=== PATIENT | female | born 1935 | race Caucasian/White ===

== ENCOUNTER 2016-04-22 11:24 | Inpatient (IN) | payer OTHER ==
--- NOTE | ~2016-04-22 | DS ---
Discharge Summary [facility] [address] [facility] [place]. [address] NAME: LISA HOPKINS : 34 STATUS : DIS IN PAT#: [id number] AGE: 80 ADM/REG DATE : 04/22/16 MR#: [id number] REPORT SERV DATE: 04/26/16 DICTATED BY: DATE: REPORT STATUS : Draft TRANSCRIBED BY: MODL DATE: 04/25/16 ADMISSION DATE: 04/22/2016 DISCHARGE DATE: 04/25/2016 DISCHARGE DIAGNOSES: 1. Hyponatremia. 2. Hypertension. 3. Hypothyroid. 4. History of atrial fibrillation. 5. Cough. 6. Nausea and vomiting. 7. Cachexia. CONSULTATIONS: Nephrology, Dr. Gutiérrez. PROCEDURES AND IMAGIN04/22/2016, portable chest x-ray showed no acute cardiopulmonary process. 04/23/2016, CT of the chest with contrast showed no pulmonary mass or adrenal mass or acute cardiopulmonary disease or intraabdominal process. HOSPITAL COURSE: This is an 80-year-old white female who is ill appearing, has had poor appetite and feeling unwell for several weeks. states she has a chronic history of hyponatremia and comes to the hospital to get it corrected and goes home and repeats the same process with nausea, vomiting, and weakness. During her stay, the patient has continued to eat poorly and has had episodic nausea, but no vomiting. The patient does have a loose cough with expectoration of beige mucus. The patient only gets out of bed to go to the bathroom. The patient unwilling versus unable to give a history or time periods related to health care and has answers most questions. When asked, the patient is alert and oriented x3. The patient's initial sodium was 120 and has been 129 for the last three days. The patient has also been having issues with low potassium during her stay. The patient has a history of atrial fibrillation but has been in sinus rhythm with PVCs during her stay. It has been discussed with family to have the patient drink protein drinks 3 times a day after attempting to eat until appetite returns. PHYSICAL EXAMINATION: VITAL SIGNS: Blood pressure 146/65, O2 saturation is 93% on room air, respirations are 19, temperature is 98.0, heart rate is 87. HEENT: Head is atraumatic, normocephalic. Pupils are equal, round, reactive to light. Sclerae are clear and nonicteric. NECK: Supple with no palpable lymphadenopathy or thyromegaly. Neck veins are flat. CARDIAC: S1 and S2 with no obvious murmurs, rubs, or gallops. LUNGS: The patient has crackles in the right greater than the left base. The patient has loose cough with deep inspiration, has normal respiratory effort. GI: Abdomen is soft and nontender with active bowel sounds in all four quadrants. Normal bowel habitus. No palpable organomegaly. EXTREMITIES: Mild nonpitting bilateral edema. Dorsalis pedis and posterior tibial pulses are palpable bilaterally. No clubbing or cyanosis noted. Discharge Summary [facility] [address] [place]. [address] NAME: LISA HOPKINS : 34 STATUS : DIS IN PAT#: [id number] AGE: 80 ADM/REG DATE : 04/22/16 MR#: [id number] REPORT SERV DATE: 04/26/16 DICTATED BY: DATE: REPORT STATUS : Draft TRANSCRIBED BY: MODL DATE: 04/25/16 MUSCULOSKELETAL: The patient moves all extremities x4. SKIN: Skin is intact, warm, and dry with normal color and turgor. NEUROPSYCH: The patient is alert and oriented x3. Affect is flat. She is eating poorly. DISCHARGE MEDICATIONS: Estrogen progesterone troches per patient protocol, Flonase two sprays in each nostril twice daily, Claritin 10 mg daily, valsartan 160 mg twice daily, Tessalon Perles 200 mg three times a day as needed for cough, Catapres 0.1 mg three times a day if needed for systolic blood pressure greater than or equal to 170, Nature Thyroid 97.5 mg p.o. daily, aspirin 81 mg daily. The patient to use Ensure or Boost 3 times a day until regains appetite. ALLERGIES: THE PATIENT IS ALLERGIC TO SULFA, CODEINE, AND PHENERGAN. DISCHARGE INSTRUCTIONS: The patient is to follow up with PCP with name provided by Case Management in 7 to [address] Gutiérrez in one week. Should the patient have any more signs and symptoms, she should call her PCP, Dr. Gutiérrez, or present to the emergency department. Approximately 40 minutes has been spent coordinating discharge care of this patient including [id number] encounter and summarization of the discharge. The patient had any type of back pain due to patient's numbness in her feet and both deny the patient has had any injury or any history of pain. SLC/MODL Claudia Cartwright NP / [id number] CC: Ant Van MD
--- NOTE | ~2016-04-22 | HP ---
History And Physical [place] [id number] [facility] [place]. [address] NAME: LISA HOPKINS : 34 STATUS : ADM IN [facility]#: [id number] AGE: 80 ADM/REG DATE : 04/22/16 MR#: [id number] REPORT SERV DATE: 04/23/16 DICTATED BY: TIFFANY JACKSON DATE: 04/22/16 REPORT STATUS : Draft TRANSCRIBED BY: MODL DATE: 04/22/16 DATE OF ADMISSION: 04/22/2016 CHIEF COMPLAINT: Nausea, vomiting, and weakness. HISTORY OF PRESENT ILLNESS: The patient states that for the past couple of weeks she could not really quantitate that she has been feeling unwell and progressively worsening. who was at bedside also provided history stating that she has a history of chronic hyponatremia, she would present to the hospital, she will get the sodium corrected, she will feel well, go home, and over the course, she will feel well, progressively worsening with symptoms of nausea, vomiting, and weakness, and would have to re-present to the hospital for her sodium to be corrected. states that this has been the pattern for a long time. States that over the past couple of weeks has not been feeling well with progressive decrease in p.o. intake. States that for the past week the patient has had very minimal p.o. intake. Reports that she has been having nausea and vomiting, but given the fact that she has not been eating, her vomitus has mostly been liquid and mucus. states that given that she was progressively worsening, which is usually the indication that her sodium may be low. He decided to bring her to the hospital today. Upon presentation to the emergency room, preliminary workup included a sodium level, which was noted to be 120. Additional history obtained by the nursing staff states that upon initial presentation, patient was actively confused, could not tell where she was or what day it is. The patient was therefore admitted on the Hospitalist Service for further management. Upon my evaluation, the patient and corroborated the above story. The patient reports lightheadedness and dizziness. She reports nausea and vomiting. States that no blood noted in her vomitus. Also reports a generalized feeling of wellness. However, she denied any chest pain, any palpitations. She denied any fevers, any chills. No diarrhea. No constipation. She denied any recent falls or any syncopal episodes. REVIEW OF SYSTEMS: As noted in the HPI. All other systems were negative. PAST MEDICAL HISTORY: Hyponatremia, recurrence since 2009; hypothyroidism; diverticulitis; bladder outlet obstruction; colon polyps; peripheral neuropathy; history of atrial fibrillation, status post cardioversion and ablation. PAST SURGICAL HISTORY: 1. Hysterectomy. 2. Appendectomy. 3. Bladder tract. 4. Cardiac ablation. 5. Cholecystectomy. 6. Varicose vein surgery. 7. Hemorrhoidectomy. 8. Right jaw surgery. SOCIAL HISTORY: The patient is currently . Lives at home with her . Denies History And Physical [address] [place]. [address] NAME: LISA HOPKINS : 34 STATUS : ADM IN [facility]#: [id number] AGE: 80 ADM/REG DATE : 04/22/16 MR#: [id number] REPORT SERV DATE: 04/23/16 DICTATED BY: TIFFANY JACKSON DATE: 04/22/16 REPORT STATUS : Draft TRANSCRIBED BY: IVETH DATE: 04/22/16 any alcohol, tobacco, or illicit drug use. FAMILY HISTORY: Positive for coronary artery disease and congestive heart failure. ALLERGIES: THE PATIENT IS ALLERGIC TO SULFA, CODEINE, AND PHENERGAN. HOME MEDICATIONS: Aspirin 81 mg p.o. daily p.r.n., clonidine 0.1 mg p.o. three times daily p.r.n., and Nature-Throid. Estradiol and progesterone. Valsartan 160 mg p.o. twice a day. PHYSICAL EXAMINATION: VITAL SIGNS: Blood pressure 181/86, pulse 84, respirations 16, and O2 saturation 97%. GENERAL: The patient lying in bed, in no acute distress, appears stated age. HEENT: Normocephalic, atraumatic. Extraocular motor is intact. Moist oral mucosa. NECK: Trachea midline and symmetric. No JVD noted. CHEST: Nontender to palpation. CARDIOVASCULAR: Regular rate and rhythm. S1, S2. I do not appreciate any murmurs, rubs, or gallops. LUNGS: Clear to auscultation bilaterally. ABDOMEN: Obese, distended, positive bowel sounds. EXTREMITIES: No cyanosis, no clubbing, no edema. NEURO: Alert and oriented x3. No focal deficits appreciated. LABS: Hemoglobin 13.2, hematocrit 37, platelets 239. Sodium 120, potassium 3.6, chloride 83, bicarb 24, BUN 10, and creatinine 0.49, and glucose 118. IMAGING: None available. ASSESSMENT AND PLAN: 1. Hyponatremia, chronic, this is symptomatic, etiology unclear at this time. Plan, we will obtain a serum osmolality sample from lab. We will start the patient on 100 mL 3% saline at 35 mL an hour, and repeat BNP at the completion of fluid. Target sodium for the first 24 hours will be 127. 2. Hypertension, uncontrolled on present medications. We will continue home medications and monitor, I will titrate as needed. 3. Hypothyroidism. The patient has a history but on no medication. We will check TSH, T4, and T3. 4. History of atrial fibrillation, status post ablation and cardioversion. The patient currently in sinus rhythm during my examination, not on anticoagulation, we will monitor. DVT prophylaxis will be heparin. The patient will remain full code at this time. History And Physical [address] [address] NAME: LISA HOPKINS : 34 STATUS : ADM IN [facility]#: [id number] AGE: 80 ADM/REG DATE : 04/22/16 MR#: [id number] REPORT SERV DATE: 04/23/16 DICTATED BY: TIFFANY JACKSON DATE: 04/22/16 REPORT STATUS : Draft TRANSCRIBED BY: IVETH DATE: 04/22/16 JAYDEN/IVETH Tiffany Jackson MD / [id number] CC: Nick Dent M.D.
--- NOTE | ~2016-04-22 | CN ---
Consultation Report [facility] [address] [place]. [address] NAME: LISA HOPKINS : 34 STATUS : ADM IN [facility]#: [id number] AGE: 80 ADM/REG DATE : 04/22/16 MR#: [id number] REPORT SERV DATE: 04/23/16 DICTATED BY: DATE: REPORT STATUS : Draft TRANSCRIBED BY: MODL DATE: 04/23/16 CONSULT DATE OF CONSULTATION: REASON FOR CONSULTATION: Hyponatremia. HISTORY OF PRESENT ILLNESS: Ms. Hopkins is an 80-year-old white female, well known to our practice with multiple admissions for hyponatremia, followed by Dr. Kang. She has not been seen in the office since 2014. At that time, her sodium was 135. She presents back to the hospital with nausea, vomiting, and weakness. She has had some confusion. The states that it started a couple of weeks ago. On review of records, it seems as though this same issue happens every time that she develops nausea. She is also having what I think is some postnasal drip. According to the patient and her , she drinks about 2 to 3 bottles of water per day and she is not eating well because of the nausea. No vomiting. No diarrhea. No fevers. No chills. She is weak and in general does not feel well. Sodium since arrival has gone from 120 to 124 with 3% saline x200 mL. PAST MEDICAL HISTORY: Hypothyroidism, hyponatremia, diverticulitis, bladder outlet obstruction, peripheral neuropathy, atrial fibrillation, she is status post cardioversion, she has had hysterectomy, appendectomy, cholecystectomy, hemorrhoid surgery, jaw surgery, and varicose vein surgery. SOCIAL HISTORY: She is , lives with her . No tobacco, alcohol, or illicit drug use. ALLERGIES: SULFA. MEDICATIONS: At the time of consultation, Diovan, thyroid, and heparin. FAMILY MEDICAL HISTORY: Congestive heart failure and coronary artery disease. REVIEW OF SYSTEMS: A 12-point review of systems obtained and negative with the exception of that in the HPI. PHYSICAL EXAMINATION: VITAL SIGNS: Temperature 96.7, blood pressure 178/81, pulse 77, respiratory rate 18, and O2 saturation is 92%. GENERAL: This is a pleasant, cooperative white female. She is awake, alert. She is not oriented to place; she is oriented to year; she is oriented to her . HEENT: Normocephalic. Atraumatic. Conjunctivae clear. Sclerae anicteric. Oral mucosa is moist. NECK: Supple. Carotids are brisk. Neck veins flat. No lymphadenopathy. LUNGS: Respirations even and unlabored. Breath sounds are coarse. She does have some Consultation Report [place] [id number] [facility] [place]. [address] NAME: LISA HOPKINS : 34 STATUS : ADM IN [facility]#: [id number] AGE: 80 ADM/REG DATE : 04/22/16 MR#: [id number] REPORT SERV DATE: 04/23/16 DICTATED BY: DATE: REPORT STATUS : Draft TRANSCRIBED BY: MODL DATE: 04/23/16 faint expiratory wheezing anteriorly. HEART: Rate is regular. I did not hear any murmur, rub, or gallop. ABDOMEN: Soft and nontender. Bowel sounds active. No masses. No hepatosplenomegaly. No bruits. No CVA tenderness. BACK: Within normal limits. EXTREMITIES: Without any edema, cyanosis, or clubbing. SKIN: Warm, dry, and intact. No unusual rashes or skin lesions. NEURO EXAM: No focal deficits. Mood and affect are flat but appropriate. Neuro exam is generalized weakness. PERTINENT LABS AND X-RAYS: Sodium is 124, potassium 3.9, chloride 90, CO2 of 21, BUN of 11, creatinine 0.53, cortisol 28. WBC 10, H and H 12 and 36, and platelets 233,000. Liver function tests are unremarkable. TSH of 1.13 with T3 and T4 being normal. Urine osmolality 273. IMPRESSION: 1. Hyponatremia. 2. Nausea and vomiting. 3. Hypertension. 4. Hypothyroidism. PLAN/RECOMMENDATIONS: Hyponatremia. 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 Suspect she gets nauseated which may be related to the postnasal drip and has excessive free water intake and sodium drops. We will give her 200 more of 3% saline. Check urine sodium, follow labs, p.r.n. Zofrtonio, p.r.n. cough drops, and follow closely, and try to come up with an outpatient regimen for when she does get sick to help avoid these hospitalizations. We will follow along with you. Thank you for the consultation. JASIEL ERIN Woodson / [id number] CC: Olman Yen M.D.
[~2016-04-22 11:24] MED LIST: ASAB PO; C25 PO; C5 PO; CARDCD240 PO; CAT1 PO; DELESTROGE IM; DEPO-TESTOS100 MG/ML IM; DIOV160 PO; DIOV80 PO; DIOVAN320 MG PO; ESTRADIOL VALERATE SC; ESTRADIOL1 MG IM; ESTRADIOL1 MG PO; Estradiol IM; K-TABS10 MEQ PO; L20 PO; LIQUID TEARS OP; LOP25 PO; MULTIVIT/MIN PO; NATURE THROI PO; NATURE THROID PO; NATURE-THROI64.8 MG PO; NATURE-THYROID PO; PACERONE200 MG PO; PROGESTERONE CREAM TOP; RYTHMOL150 MG PO; T COMPOUND PO; TEKTURNA300 MG PO; TESTOST CYP100 MG/ML IM; TESTOSTERONE SC; Testosterone IM; Testosterone PO; ZESTORETIC PO; [UNRECOGNIZED DRUG - MIXTURE] PO
[2016-04-22 12:02] LABS: BASOPHILS 0.1 %; BASOPHILS ABSOLUTE 0.01 10/3/uL (0.0-0.16); EOSINOPHILS 0.6 %; EOSINOPHILS ABSOLUTE 0.07 10/3/uL (0.0-0.53); ER CBC TAT 0 Hrs 05 Mins; HEMOGLOBIN 13.2 g/dL (12.0-16.0); IMMATURE GRANULOCYTES 0.3 %; IMMATURE GRANULOCYTES ABSOLUTE 0.04 10/3/uL (0.0-0.11); LYMPHOCYTES 8.7 %; LYMPHOCYTES ABSOLUTE 1.08 10/3/uL (0.67-4.30); MEAN CORPUS HGB CONC 35.7 g/dL (32.0-36.0); MEAN CORPUSCULAR VOLUME 89.6 fL (80-100); MEAN PLATELET VOLUME 10.6 fL (9.2-13.0); MONOCYTES 12.7 %; MONOCYTES ABSOLUTE 1.57 10/3/uL (0.21-1.20); NEUTROPHILS 77.6 %; NEUTROPHILS ABSOLUTE 9.59 10/3/uL (2.02-8.40); PLATELET COUNT 239 10/3/uL (150-400); RBC DISTRIBUTION WIDTH 13.5 % (12.0-16.0); RED CELL COUNT 4.13 10/6/uL (4.0-5.6); WHITE BLOOD CELLS 12.4 10/3/uL (4.5-10.5)
[2016-04-22 12:04] LABS: MANUAL DIFF NO %
[2016-04-22 12:20] LABS: A/G RATIO 0.7 (0.7-1.9); ALBUMIN 3.2 G/DL (3.5-5.0); ALKALINE PHOSPHATASE 104 U/L (45-117); BUN (BLOOD UREA NITROGEN) 10 MG/DL (6-23); CALCIUM, SERUM 8.6 MG/DL (8.5-10.4); CHLORIDE, SERUM 83 MMOL/L (96-112); CO2 (CARBON DIOXIDE) 24 MMOL/L (24-34); CREATININE 0.49 MG/DL (0.55-1.02); GFR AFRICAN AMERICAN 106 ML/MIN (>=60); GFR NON AFRICAN AMERICAN 91 ML/MIN (>=60); GLOBULIN 4.7 G/DL (2.5-4.1); GLUCOSE, SERUM 118 MG/DL (60-99); POTASSIUM, SERUM 3.6 MMOL/L (3.5-5.3); SGOT(AST) 28 U/L (5-40); SGPT(ALT) 26 U/L (5-65); SODIUM, SERUM 120 MMOL/L (135-148); TOTAL BILIRUBIN 1.2 MG/DL (0-1.2); TOTAL PROTEIN 7.9 G/DL (6.0-8.5)
[2016-04-22 15:57] LABS: ASCORBIC ACID (UR NOT ORDER) NEG (NEG); BILIRUBIN, URINE NEGATIVE (NEG); ER URINALYSIS TAT 0 Hrs 15 Mins; KETONE, URINE 20 MG/DL (NEG); LEUKOCYTE ESTERASE(NOT OR NEG (NEG); NITRITE (URINE) NEG (NEG); WBC (NOT ORDERED) (RFLEX) 3 (0-5)
[2016-04-22] MEDS ORDERED: NATURE THYROID PO (16:42)
[2016-04-22] MEDS ORDERED: CAT1 PO (16:43)
[2016-04-22] MEDS ORDERED: DIOV160 PO (16:43)
[2016-04-22] MEDS ORDERED: HALF81 PO (16:44)
[2016-04-22] MEDS ORDERED: PROGEST PO (16:45)
[2016-04-22] MEDS ORDERED: ESTRADIOL PO (16:45)
[2016-04-23 01:15] LABS: BUN (BLOOD UREA NITROGEN) 11 MG/DL (6-23); CALCIUM, SERUM 8.3 MG/DL (8.5-10.4); CHLORIDE, SERUM 87 MMOL/L (96-112); CO2 (CARBON DIOXIDE) 23 MMOL/L (24-34); CREATININE 0.53 MG/DL (0.55-1.02); GFR AFRICAN AMERICAN 103 ML/MIN (>=60); GFR NON AFRICAN AMERICAN 89 ML/MIN (>=60); GLUCOSE, SERUM 95 MG/DL (60-99); POTASSIUM, SERUM 3.9 MMOL/L (3.5-5.3); SODIUM, SERUM 122 MMOL/L (135-148)
[2016-04-23 05:06] LABS: BASOPHILS 0.1 %; BASOPHILS ABSOLUTE 0.01 10/3/uL (0.0-0.16); EOSINOPHILS 1.7 %; EOSINOPHILS ABSOLUTE 0.18 10/3/uL (0.0-0.53); HEMOGLOBIN 12.8 g/dL (12.0-16.0); IMMATURE GRANULOCYTES 0.3 %; IMMATURE GRANULOCYTES ABSOLUTE 0.03 10/3/uL (0.0-0.11); LYMPHOCYTES 13.6 %; LYMPHOCYTES ABSOLUTE 1.46 10/3/uL (0.67-4.30); MEAN CORPUS HGB CONC 35.6 g/dL (32.0-36.0); MEAN CORPUSCULAR HEMOGLOB 32.1 pg (26.0-34.0); MEAN CORPUSCULAR VOLUME 90.2 fL (80-100); MEAN PLATELET VOLUME 10.8 fL (9.2-13.0); MONOCYTES 14.4 %; MONOCYTES ABSOLUTE 1.54 10/3/uL (0.21-1.20); NEUTROPHILS 69.9 %; NEUTROPHILS ABSOLUTE 7.48 10/3/uL (2.02-8.40); PLATELET COUNT 233 10/3/uL (150-400); RBC DISTRIBUTION WIDTH 13.4 % (12.0-16.0); RED CELL COUNT 3.99 10/6/uL (4.0-5.6); WHITE BLOOD CELLS 10.7 10/3/uL (4.5-10.5)
[2016-04-23 05:07] LABS: MANUAL DIFF NO %
[2016-04-23 05:32] LABS: A/G RATIO 0.7 (0.7-1.9); ALKALINE PHOSPHATASE 94 U/L (45-117); BUN (BLOOD UREA NITROGEN) 10 MG/DL (6-23); CHLORIDE, SERUM 88 MMOL/L (96-112); CO2 (CARBON DIOXIDE) 23 MMOL/L (24-34); CREATININE 0.52 MG/DL (0.55-1.02); GFR AFRICAN AMERICAN 104 ML/MIN (>=60); GFR NON AFRICAN AMERICAN 90 ML/MIN (>=60); GLOBULIN 4.3 G/DL (2.5-4.1); GLUCOSE, SERUM 96 MG/DL (60-99); POTASSIUM, SERUM 4.1 MMOL/L (3.5-5.3); SGOT(AST) 33 U/L (5-40); SGPT(ALT) 25 U/L (5-65); SODIUM, SERUM 124 MMOL/L (135-148); T3 UPTAKE 36 % (30-45); T4 (THYROXINE) TOTAL 6.8 MCG/DL (4.5-12.0); TOTAL PROTEIN 7.3 G/DL (6.0-8.5)
[2016-04-23 11:42] LABS: BUN (BLOOD UREA NITROGEN) 11 MG/DL (6-23); CALCIUM, SERUM 8.5 MG/DL (8.5-10.4); CHLORIDE, SERUM 90 MMOL/L (96-112); CO2 (CARBON DIOXIDE) 21 MMOL/L (24-34); CREATININE 0.53 MG/DL (0.55-1.02); GFR AFRICAN AMERICAN 103 ML/MIN (>=60); GFR NON AFRICAN AMERICAN 89 ML/MIN (>=60); GLUCOSE, SERUM 99 MG/DL (60-99); POTASSIUM, SERUM 3.9 MMOL/L (3.5-5.3); SODIUM, SERUM 124 MMOL/L (135-148)
[2016-04-23 17:46] LABS: BUN (BLOOD UREA NITROGEN) 10 MG/DL (6-23); CALCIUM, SERUM 8.7 MG/DL (8.5-10.4); CHLORIDE, SERUM 91 MMOL/L (96-112); CO2 (CARBON DIOXIDE) 21 MMOL/L (24-34); CREATININE 0.51 MG/DL (0.55-1.02); GFR AFRICAN AMERICAN 105 ML/MIN (>=60); GFR NON AFRICAN AMERICAN 90 ML/MIN (>=60); GLUCOSE, SERUM 95 MG/DL (60-99); PHOSPHORUS, SERUM 1.9 MG/DL (2.5-4.5); SODIUM, SERUM 124 MMOL/L (135-148)
[2016-04-23 23:22] LABS: ALBUMIN 2.8 G/DL (3.5-5.0); BUN (BLOOD UREA NITROGEN) 10 MG/DL (6-23); CALCIUM, SERUM 8.3 MG/DL (8.5-10.4); CHLORIDE, SERUM 94 MMOL/L (96-112); CO2 (CARBON DIOXIDE) 19 MMOL/L (24-34); CREATININE 0.49 MG/DL (0.55-1.02); GFR AFRICAN AMERICAN 106 ML/MIN (>=60); GFR NON AFRICAN AMERICAN 91 ML/MIN (>=60); GLUCOSE, SERUM 92 MG/DL (60-99); PHOSPHORUS, SERUM 1.8 MG/DL (2.5-4.5); SODIUM, SERUM 125 MMOL/L (135-148)
[2016-04-23 23:24] LABS: POTASSIUM, SERUM 4.2 MMOL/L (3.5-5.3)
[2016-04-24 06:58] LABS: ALBUMIN 2.9 G/DL (3.5-5.0); BUN (BLOOD UREA NITROGEN) 8 MG/DL (6-23); CALCIUM, SERUM 8.5 MG/DL (8.5-10.4); CHLORIDE, SERUM 93 MMOL/L (96-112); CREATININE 0.56 MG/DL (0.55-1.02); GFR AFRICAN AMERICAN 101 ML/MIN (>=60); GFR NON AFRICAN AMERICAN 87 ML/MIN (>=60); GLUCOSE, SERUM 89 MG/DL (60-99); PHOSPHORUS, SERUM 1.9 MG/DL (2.5-4.5); POTASSIUM, SERUM 3.5 MMOL/L (3.5-5.3); SODIUM, SERUM 129 MMOL/L (135-148)
[2016-04-24 06:59] LABS: CO2 (CARBON DIOXIDE) 23 MMOL/L (24-34)
[2016-04-24 16:30] LABS: CHLORIDE, SERUM 93 MMOL/L (96-112); CO2 (CARBON DIOXIDE) 22 MMOL/L (24-34); CREATININE 0.61 MG/DL (0.55-1.02); GFR AFRICAN AMERICAN 99 ML/MIN (>=60); GFR NON AFRICAN AMERICAN 85 ML/MIN (>=60); GLUCOSE, SERUM 93 MG/DL (60-99); PHOSPHORUS, SERUM 2.2 MG/DL (2.5-4.5); POTASSIUM, SERUM 3.7 MMOL/L (3.5-5.3); SODIUM, SERUM 129 MMOL/L (135-148)
[2016-04-24 16:32] LABS: BUN (BLOOD UREA NITROGEN) 12 MG/DL (6-23)
[2016-04-24 23:43] LABS: BUN (BLOOD UREA NITROGEN) 12 MG/DL (6-23); CALCIUM, SERUM 8.4 MG/DL (8.5-10.4); CHLORIDE, SERUM 94 MMOL/L (96-112); CO2 (CARBON DIOXIDE) 23 MMOL/L (24-34); CREATININE 0.65 MG/DL (0.55-1.02); GFR AFRICAN AMERICAN 97 ML/MIN (>=60); GFR NON AFRICAN AMERICAN 83 ML/MIN (>=60); GLUCOSE, SERUM 91 MG/DL (60-99); PHOSPHORUS, SERUM 2.5 MG/DL (2.5-4.5); POTASSIUM, SERUM 3.3 MMOL/L (3.5-5.3); SODIUM, SERUM 129 MMOL/L (135-148)
[2016-04-25 06:55] LABS: ALBUMIN 2.7 G/DL (3.5-5.0); BUN (BLOOD UREA NITROGEN) 14 MG/DL (6-23); CALCIUM, SERUM 8.1 MG/DL (8.5-10.4); CHLORIDE, SERUM 95 MMOL/L (96-112); CO2 (CARBON DIOXIDE) 19 MMOL/L (24-34); CREATININE 0.59 MG/DL (0.55-1.02); GFR AFRICAN AMERICAN 100 ML/MIN (>=60); GFR NON AFRICAN AMERICAN 86 ML/MIN (>=60); GLUCOSE, SERUM 83 MG/DL (60-99); PHOSPHORUS, SERUM 2.2 MG/DL (2.5-4.5); POTASSIUM, SERUM 3.3 MMOL/L (3.5-5.3); SODIUM, SERUM 129 MMOL/L (135-148)
[2016-04-25 09:03] LABS: BASOPHILS 0.6 %; BASOPHILS ABSOLUTE 0.05 10/3/uL (0.0-0.16); EOSINOPHILS 1.5 %; EOSINOPHILS ABSOLUTE 0.13 10/3/uL (0.0-0.53); HEMATOCRIT 39.4 % (36.0-48.0); HEMOGLOBIN 13.6 g/dL (12.0-16.0); IMMATURE GRANULOCYTES 0.2 %; IMMATURE GRANULOCYTES ABSOLUTE 0.02 10/3/uL (0.0-0.11); LYMPHOCYTES 18.8 %; LYMPHOCYTES ABSOLUTE 1.64 10/3/uL (0.67-4.30); MEAN CORPUS HGB CONC 34.5 g/dL (32.0-36.0); MEAN CORPUSCULAR HEMOGLOB 31.9 pg (26.0-34.0); MEAN CORPUSCULAR VOLUME 92.5 fL (80-100); MEAN PLATELET VOLUME 10.6 fL (9.2-13.0); MONOCYTES 15.6 %; MONOCYTES ABSOLUTE 1.36 10/3/uL (0.21-1.20); NEUTROPHILS 63.3 %; NEUTROPHILS ABSOLUTE 5.51 10/3/uL (2.02-8.40); PLATELET COUNT 275 10/3/uL (150-400); RBC DISTRIBUTION WIDTH 13.8 % (12.0-16.0); RED CELL COUNT 4.26 10/6/uL (4.0-5.6); WHITE BLOOD CELLS 8.7 10/3/uL (4.5-10.5)
[2016-04-25 09:07] LABS: MANUAL DIFF NO %
[2016-04-25 09:10] LABS: ALBUMIN 2.9 G/DL (3.5-5.0); BUN (BLOOD UREA NITROGEN) 13 MG/DL (6-23); CALCIUM, SERUM 8.8 MG/DL (8.5-10.4); CHLORIDE, SERUM 94 MMOL/L (96-112); CO2 (CARBON DIOXIDE) 22 MMOL/L (24-34); GFR AFRICAN AMERICAN 94 ML/MIN (>=60); GFR NON AFRICAN AMERICAN 81 ML/MIN (>=60); GLUCOSE, SERUM 94 MG/DL (60-99); PHOSPHORUS, SERUM 2.1 MG/DL (2.5-4.5); POTASSIUM, SERUM 3.7 MMOL/L (3.5-5.3); SODIUM, SERUM 129 MMOL/L (135-148)
[2016-04-25 15:38] LABS: ALBUMIN 2.7 G/DL (3.5-5.0); BUN (BLOOD UREA NITROGEN) 14 MG/DL (6-23); CALCIUM, SERUM 8.5 MG/DL (8.5-10.4); CHLORIDE, SERUM 98 MMOL/L (96-112); CO2 (CARBON DIOXIDE) 23 MMOL/L (24-34); CREATININE 0.69 MG/DL (0.55-1.02); GFR AFRICAN AMERICAN 95 ML/MIN (>=60); GFR NON AFRICAN AMERICAN 82 ML/MIN (>=60); GLUCOSE, SERUM 110 MG/DL (60-99); PHOSPHORUS, SERUM 1.7 MG/DL (2.5-4.5); POTASSIUM, SERUM 4.1 MMOL/L (3.5-5.3); SODIUM, SERUM 130 MMOL/L (135-148)
[2016-04-25] MEDS ORDERED: TESSALON200 MG PO (16:29)
[2016-04-25] MEDS ORDERED: FLONASE NAS (16:29)
[2016-04-25] MEDS ORDERED: CLARIT10 PO (16:30)
[2016-09-27] MEDS ORDERED: CATPATCH1 TOP (23:07)
[2016-09-27] MEDS ORDERED: TIMOLOL MAL0.5 % OPH (23:07)
[2016-09-27] MEDS ORDERED: DIOV160 PO (23:08)
[2016-09-27] MEDS ORDERED: COREG3 PO (23:10)
[2016-09-27] MEDS ORDERED: ASAB PO (23:11)
[2016-09-27] MEDS ORDERED: VITAMIN B PO (23:12)
[2016-10-01] MEDS ORDERED: TIMOLOL MAL0.5 % OPH (18:10)
[2016-10-01] MEDS ORDERED: AKWA TEARS15 ML OPH (18:10)
[2016-10-01] MEDS ORDERED: L20 PO (18:11)
[2016-10-01] MEDS ORDERED: KLOR-CON M1010 MEQ PO (18:12)
[2016-10-01] MEDS ORDERED: CATPATCH1 TOP (18:13)
[2016-10-01] MEDS ORDERED: COREG3 PO (18:14)
[2016-10-01] MEDS ORDERED: DIOV160 PO (18:16)
[2016-10-05] MEDS ORDERED: MULTIPLE VIT PO (11:41)
[2016-10-05] MEDS ORDERED: BUM2 PO (11:42)
[2016-10-05] MEDS ORDERED: SYN.05 PO (11:43)
[2016-10-05] MEDS ORDERED: NEUR100 PO (11:44)
== END 2016-04-25 18:17 | disposition home or self-care (01) | DRG 643 ==
LOC: ER 11:24 → 6NO 18:47
PROVIDERS: Emergency Medicine; Hospitalist; Internal Medicine; Internal Medicine Nephrology; Nurse Practitioner
DX: E22.2 Syndrome of inappropriate secretion of antidiuretic hormone (principal); G93.41 Metabolic encephalopathy; I48.91 Unspecified atrial fibrillation; G62.9 Polyneuropathy, unspecified; E03.9 Hypothyroidism, unspecified; I10 Essential (primary) hypertension; R33.9 Retention of urine, unspecified; K57.30 Diverticulosis of large intestine without perforation or abscess without bleeding; Z86.010 Personal history of colon polyps; Z90.710 Acquired absence of both cervix and uterus; Z90.49 Acquired absence of other specified parts of digestive tract; Z82.49 Family history of ischemic heart disease and other diseases of the circulatory system; Z88.2 Allergy status to sulfonamides; Z88.5 Allergy status to narcotic agent; Z88.8 Allergy status to other drugs, medicaments and biological substances
CPT/HCPCS: 71010; 71260; 74177; 80048; 80053; 80069; 81001; 82533; 83690; 83735; 83930; 83935; 84300; 84436; 84443; 84479; 85025; 96374; 99285; A9270-GY; J0360; J2405; Q9967

== ENCOUNTER 2016-05-14 21:35 | Emergency (ER) | payer OTHER ==
[2016-05-14 18:35] LABS: ASCORBIC ACID (UR NOT ORDER) NEG (NEG); BILIRUBIN, URINE NEGATIVE (NEG); ER URINALYSIS TAT 0 Hrs 12 Mins; KETONE, URINE NEGATIVE (NEG); LEUKOCYTE ESTERASE(NOT OR NEG (NEG); NITRITE (URINE) NEG (NEG); WBC (NOT ORDERED) (RFLEX) < 1 (0-5)
[2016-05-14 19:00] LABS: A/G RATIO 0.6 (0.7-1.9); ALBUMIN 3.1 G/DL (3.5-5.0); ALKALINE PHOSPHATASE 100 U/L (45-117); CHLORIDE, SERUM 98 MMOL/L (96-112); CO2 (CARBON DIOXIDE) 16 MMOL/L (24-34); CREATININE 0.77 MG/DL (0.55-1.02); GFR AFRICAN AMERICAN 84 ML/MIN (>=60); GFR NON AFRICAN AMERICAN 72 ML/MIN (>=60); GLOBULIN 4.8 G/DL (2.5-4.1); GLUCOSE, SERUM 91 MG/DL (60-99); POTASSIUM, SERUM 3.8 MMOL/L (3.5-5.3); SGOT(AST) 30 U/L (5-40); SGPT(ALT) 20 U/L (5-65); SODIUM, SERUM 125 MMOL/L (135-148); TOTAL BILIRUBIN 0.7 MG/DL (0-1.2); TOTAL PROTEIN 7.9 G/DL (6.0-8.5)
[2016-05-14 19:01] LABS: BUN (BLOOD UREA NITROGEN) 19 MG/DL (6-23)
[~2016-05-14 21:35] MED LIST changes: +CLARIT10 PO; +ESTRADIOL PO; +FLONASE NAS; +HALF81 PO; +NATURE THYROID PO; +PROGEST PO; +TESSALON200 MG PO
[2016-05-14] MEDS ORDERED: NATURE THYROID PO (21:42)
[2016-05-14] MEDS ORDERED: ASAB PO (21:44)
[2016-05-14] MEDS ORDERED: VISINE TEARS15 ML OPH (21:45)
[2016-05-14] MEDS ORDERED: LEVAQUIN5T PO (21:48)
[2016-05-14] MEDS ORDERED: VARIOUS VITAMINS PO (21:49)
[2016-05-14] MEDS ORDERED: [UNRECOGNIZED DRUG - OTHER] TOP (21:51)
[2016-05-14 23:30] LABS: BASOPHILS 0.2 %; BASOPHILS ABSOLUTE 0.01 10/3/uL (0.0-0.16); EOSINOPHILS 1.3 %; EOSINOPHILS ABSOLUTE 0.07 10/3/uL (0.0-0.53); ER CBC TAT 0 Hrs 04 MinsNP; HEMATOCRIT 35.5 % (36.0-48.0); HEMOGLOBIN 12.2 g/dL (12.0-16.0); IMMATURE GRANULOCYTES 0.6 %; IMMATURE GRANULOCYTES ABSOLUTE 0.03 10/3/uL (0.0-0.11); LYMPHOCYTES 16.4 %; LYMPHOCYTES ABSOLUTE 0.89 10/3/uL (0.67-4.30); MANUAL DIFF NO %; MEAN CORPUS HGB CONC 34.4 g/dL (32.0-36.0); MEAN CORPUSCULAR VOLUME 93.2 fL (80-100); MEAN PLATELET VOLUME 10.2 fL (9.2-13.0); MONOCYTES 11.8 %; MONOCYTES ABSOLUTE 0.64 10/3/uL (0.21-1.20); NEUTROPHILS 69.7 %; NEUTROPHILS ABSOLUTE 3.78 10/3/uL (2.02-8.40); PLATELET COUNT 237 10/3/uL (150-400); RBC DISTRIBUTION WIDTH 14.4 % (12.0-16.0); RED CELL COUNT 3.81 10/6/uL (4.0-5.6); WHITE BLOOD CELLS 5.4 10/3/uL (4.5-10.5)
[2016-09-27] MEDS ORDERED: TIMOLOL MAL0.5 % OPH (23:07)
[2016-09-27] MEDS ORDERED: CATPATCH1 TOP (23:07)
[2016-09-27] MEDS ORDERED: DIOV160 PO (23:08)
[2016-09-27] MEDS ORDERED: COREG3 PO (23:10)
[2016-09-27] MEDS ORDERED: ASAB PO (23:11)
[2016-09-27] MEDS ORDERED: VITAMIN B PO (23:12)
[2016-10-01] MEDS ORDERED: AKWA TEARS15 ML OPH (18:10)
[2016-10-01] MEDS ORDERED: TIMOLOL MAL0.5 % OPH (18:10)
[2016-10-01] MEDS ORDERED: L20 PO (18:11)
[2016-10-01] MEDS ORDERED: KLOR-CON M1010 MEQ PO (18:12)
[2016-10-01] MEDS ORDERED: CATPATCH1 TOP (18:13)
[2016-10-01] MEDS ORDERED: COREG3 PO (18:14)
[2016-10-01] MEDS ORDERED: DIOV160 PO (18:16)
[2016-10-05] MEDS ORDERED: MULTIPLE VIT PO (11:41)
[2016-10-05] MEDS ORDERED: BUM2 PO (11:42)
[2016-10-05] MEDS ORDERED: SYN.05 PO (11:43)
[2016-10-05] MEDS ORDERED: NEUR100 PO (11:44)
== END 2016-05-15 00:41 | disposition home or self-care (01) ==
LOC: ER 21:35
PROVIDERS: Emergency Medicine
DX: R11.2 Nausea with vomiting, unspecified (principal); E87.1 Hypo-osmolality and hyponatremia; Z88.1 Allergy status to other antibiotic agents; Z88.5 Allergy status to narcotic agent; Z88.2 Allergy status to sulfonamides; I10 Essential (primary) hypertension; I48.91 Unspecified atrial fibrillation; R10.9 Unspecified abdominal pain; R19.7 Diarrhea, unspecified
CPT/HCPCS: 74176; 80053; 81001; 83605; 83690; 85025; 96374; 99284; J1980; J2405